=== PATIENT | male | born 1955 | race Caucasian/White ===

== ENCOUNTER 2020-03-24 09:00 | Outpatient (CLI) | payer OTHER | END 2020-03-24 09:10 | disposition home or self-care (01) | LOC: NUCLEAR 09:00 | PROVIDERS: ATTEND Internal Medicine | DX: I34.0 Nonrheumatic mitral (valve) insufficiency (principal) ==

== ENCOUNTER 2021-06-02 06:15 | Day surgery (SDC) | payer OTHER | END 2021-06-02 11:20 | disposition home or self-care (01) | LOC: AMB-ENDOS 06:15 | PROVIDERS: ATTEND Surgery | DX: D12.0 Benign neoplasm of cecum (principal); D12.2 Benign neoplasm of ascending colon; Z20.822 Contact with and (suspected) exposure to COVID-19 ==

== ENCOUNTER 2021-12-19 10:45 | Outpatient (CLI) | payer OTHER | END 2021-12-19 11:30 | disposition home or self-care (01) | LOC: ASH CLINIC 10:45 | PROVIDERS: ATTEND General Practice | DX: U07.1 COVID-19 (principal) ==

== ENCOUNTER 2022-12-28 10:08 | Outpatient (CLI) | payer OTHER | END 2022-12-28 10:09 | disposition home or self-care (01) | LOC: NUCLEAR 10:08 | PROVIDERS: ATTEND Internal Medicine | DX: I11.0 Hypertensive heart disease with heart failure (principal); I50.30 Unspecified diastolic (congestive) heart failure | CPT/HCPCS: 78803; A9538 ==

== ENCOUNTER 2023-03-15 10:58 | Outpatient (CLI) | payer OTHER | END 2023-03-15 11:09 | disposition home or self-care (01) | LOC: SONOGRAMA 10:58 | PROVIDERS: ATTEND Internal Medicine Cardiovascular Disease | DX: M12.9 Arthropathy, unspecified (principal) ==